=== PATIENT | male | born 1985 | race Caucasian/White ===

== ENCOUNTER 2017-10-26 00:48 | Emergency (ER) | payer MEDICAID, OTHER ==
[2017-10-26] MEDS: KETOROLAC 30 MG INJ IM (02:05)
[2017-10-26] MEDS: DIPHTH/TET/ACEL PERTUSS (ADULT) 0.5 ML VIAL IM* (02:06)
[2017-10-26] MEDS: AMOXICILLIN/CLAV 875 MG TAB PO (02:17)
== END 2017-10-26 02:43 | disposition home or self-care (01) ==
LOC: FTE 00:48
DX: S41.131A Puncture wound without foreign body of right upper arm, initial encounter (principal); S41.132A Puncture wound without foreign body of left upper arm, initial encounter; F17.210 Nicotine dependence, cigarettes, uncomplicated; W54.0XXA Bitten by dog, initial encounter; Y92.9 Unspecified place or not applicable; Z23 Encounter for immunization
CPT/HCPCS: 90471; 90715; 96372; 99284-25